=== PATIENT | female | born 1970 | race Two or more races ===

== ENCOUNTER → 2018-07-25 | Outpatient (CLI) | payer BC ==
[2018-07-25 10:34] LABS: Basophils % (A) 0 %; Eosinophils % (A) 0 %; HCT 40.4 % (34.0-46.0); HGB 14.1 gm/dL (11.4-16.0); Lymphocytes # (A) 2.5 k/uL (1.0-4.8); Lymphocytes % (A) 14 %; MCH 31.5 pg (25.0-35.0); MCHC 34.8 g/dL (31.0-37.0); MCV 90.5 fL (80.0-100.0); Mean Platelet Volume 6.7; Monocytes # (A) 0.6 k/uL (0-1.0); Monocytes % (A) 3 %; Neutrophils # (A) 14.7 k/uL (1.3-7.7); Neutrophils % (A) 82 %; Platelet Count 317 k/uL (150-450); RBC 4.47 m/uL (3.80-5.40); RDW 12.3 % (11.5-15.5)
[2018-07-25 13:16] LABS: Erythrocyte Sedimentation Rate 12 mm/hr (0-20)
[2018-07-25 16:34] LABS: Anti-DNA, DS unit <1.0 IU/mL; DNA Double-Stranded NEGATIVE (NEGATIVE); RNP <0.2 AI; Scleroderma SC-70 Ab 0.5 AI
[2018-07-25 17:25] LABS: ALT 124 U/L (8-44); AST 52 U/L (13-35); Albumin/Globulin Ratio 2.24 (1.60-3.17); Alkaline Phosphatase 90 U/L (41-126); C Reactive Protein <0.4 mg/dL (0.0-0.8); Calcium 9.7 mg/dL (8.7-10.3); Carbon Dioxide 23.3 mmol/L (21.6-31.8); Chloride 106 mmol/L (96-109); Globulin 2.1 g/dL (1.6-3.3); Glucose 94 mg/dL (70-110); Potassium 4.2 mmol/L (3.5-5.5); Sodium 139 mmol/L (135-145); Total Bilirubin 0.9 mg/dL (0.3-1.2); Total Protein 6.8 g/dL (6.2-8.2)
[2018-07-25 17:26] LABS: Iron Saturation 71.92 (12.00-45.00); Rheumatoid Factor 6 IU/mL (0-15)
[2018-07-25 17:46] LABS: Folate, Serum 10.5 ng/mL
[2018-07-25 21:28] LABS: Total Protein,CSF 54 mg/dL (12-60)
[2018-07-25 21:43] LABS: Appearance,CSF Clear; CSF Tube Number 4
[2018-07-25 21:44] LABS: Nucleated Cells, CSF 1 u/L (0-5); Red Blood Cell,CSF 0 u/L (0-10)
[2018-07-26 19:16] LABS: Estrogens Total 42 pg/mL
[2018-07-27 13:22] LABS: IgG/Albumin Index (CSF) 0.54 (0.00 - 0.77); Immunoglobulin G 972 mg/dL (700 - 1600)
== END | disposition home or self-care (01) ==
LOC: LABWHC1 09:22
PROVIDERS: ATTEND Psychiatry & Neurology Neurology
DX: H53.8 Other visual disturbances (principal); R90.82 White matter disease, unspecified; R51 Headache; R63.5 Abnormal weight gain; R79.89 Other specified abnormal findings of blood chemistry; R53.82 Chronic fatigue, unspecified; M25.50 Pain in unspecified joint; G35 Multiple sclerosis; Z71.3 Dietary counseling and surveillance; Z71.82 Exercise counseling
CPT/HCPCS: 36415; 80053; 82040; 82042; 82306; 82607; 82672; 82728; 82746; 82784; 83001; 83002; 83516; 83540; 83550; 83873; 83916; 84157; 85025; 85652; 86038; 86140; 86200; 86225; 86235; 86431; 86618; 87801; 89050